=== PATIENT | male | born 1940 | race Caucasian/White ===

== ENCOUNTER 2018-04-25 13:52 | Inpatient (IN) | payer MEDICARE, OTHER ==
[~2018-04-25] VITALS: Ht 175.3 cm; Wt 86.2 kg
[2018-04-25] MEDS ORDERED: CETI10TA32 PO (14:19)
[2018-04-25] MEDS ORDERED: CHOL1CRY3 PO (14:19)
[2018-04-25] MEDS ORDERED: SIMV20TA3 PO (14:19)
[2018-04-25] MEDS ORDERED: [UNRECOGNIZED DRUG - CODE] PO (14:19)
[2018-04-25] MEDS ORDERED: VIT1CAPS16 PO (14:19)
[2018-04-25] MEDS ORDERED: ASPI-496 PO (14:19)
[2018-04-25] MEDS ORDERED: NITR9CAP3 SL (14:19)
--- NOTE | 2018-04-25 15:23 | NUR ---
REPORT TO VENOUS RN
[2018-04-25] MEDS ORDERED: NITROGLYCERIN 0.4 MG BOTTLE (25 TABS) SL PRN (15:30)
[2018-04-25] MEDS ORDERED: NITROGLYCERIN 0.4 MG/SPRAY SL PRN (15:30)
[2018-04-25] MEDS ORDERED: ONDANSETRON 2MG/ML, 2ML IVPush PRN (15:30)
[2018-04-25] MEDS ORDERED: morphine SULFATE 10 MG/ML, 1ML IVPush PRN (15:30)
[2018-04-25] MEDS ORDERED: ONDANSETRON ODT 4 MG PO PRN (15:30)
[2018-04-25] MEDS ORDERED: SODIUM CHLORIDE FLUSH 10ML SYR IVF PRN (15:30)
[2018-04-25 15:57] VITALS: BP 129/82
[2018-04-25 16:03] VITALS: BP 129/82
[2018-04-25] MEDS ORDERED: HEPARIN 5,000 UNITS/ML, 1ML IV ONE (16:30)
[2018-04-25] MEDS: HEPARIN 25,000 UNITS/500ML PMX 500 ML IV PRN (17:08)
[2018-04-25 19:47] VITALS: BP 106/66
[2018-04-25] MEDS ORDERED: SIMVASTATIN 20 MG TABLET PO SCH (21:00)
[2018-04-25] MEDS: CETIRIZINE 10 MG TABLET PO SCH (21:07)
[2018-04-25] MEDS: HEPARIN 5,000 UNITS/ML, 1ML IV PRN (23:13)
[2018-04-26 03:12] VITALS: BP 113/73
[2018-04-26] MEDS ORDERED: METOPROLOL TARTRATE 25 MG TABLET PO ONE (05:00)
[2018-04-26 05:30] LABS: BASOPHILS # (AUTO) 0.05 x10^3/uL (0-0.1); BASOPHILS % (AUTO) 1 % (0-1); EOSINOPHILS # (AUTO) 0.04 x10^3/uL (0-0.4); EOSINOPHILS % (AUTO) 1 % (1-7); LYMPHOCYTES # (AUTO) 1.58 x10^3/uL (1-3.4); LYMPHOCYTES % (AUTO) 19 % (22-44); MD NO; MEAN CORPUSCULAR HEMOGLOBIN 31.7 pg (27.5-34.5); MEAN CORPUSCULAR HGB CONC 33.3 g/dL (33.2-36.2); MEAN CORPUSCULAR VOLUME 95.2 fL (81-97); MEAN PLATELET VOLUME 10.9 fL (7.4-10.4); MONOCYTES # (AUTO) 0.77 x10^3/uL (0.2-0.8); MONOCYTES % (AUTO) 9 % (2-9); NEUTROPHILS # (AUTO) 5.97 x10^3/uL (1.8-6.8); NEUTROPHILS % (AUTO) 71 % (42-75); PLATELET COUNT 214 x10^3/uL (130-400); RED BLOOD COUNT 4.72 x10^6/uL (4.38-5.82); RED CELL DISTRIBUTION WIDTH 14.9 % (9.4-14.8)
[2018-04-26 05:44] LABS: CHLORIDE 110 mmol/L (98-107)
[2018-04-26 06:02] LABS: ALANINE AMINOTRANSFERASE 47 U/L (12-78); ALBUMIN 3.2 g/dL (3.4-5.0); ALKALINE PHOSPHATASE 82 U/L (45-117); ANION GAP 9 mmol/L (5-15); BILIRUBIN,TOTAL 0.9 mg/dL (0.2-1.0); CALCIUM 8.6 mg/dL (8.5-10.1); CHOL/HDL RATIO 2.4; CHOLESTEROL, TOTAL 97 mg/dL (140-239); CREATININE 1.08 mg/dL (0.7-1.3); HDL CHOL % 42 % (26-37); HDL CHOLESTEROL (DIRECT) 41 mg/dL (40-60); LDL CHOLESTEROL,CALCULATED 45 mg/dL (54-169); LDL/HDL RATIO 1.1 (0.5-3.0); TRIGLYCERIDES 57 mg/dL (50-200); VLDL CHOLESTEROL 11 mg/dL (0-25)
[2018-04-26] MEDS: HEPARIN 5,000 UNITS/ML, 1ML IV PRN ×2 (06:23→23:30)
[2018-04-26 07:40] VITALS: BP 124/79
[2018-04-26] MEDS: FUROSEMIDE 20 MG/2 ML IV SCH ×2 (08:14→18:31)
[2018-04-26] MEDS ORDERED: CETIRIZINE 10 MG TABLET PO SCH (09:00)
[2018-04-26] MEDS ORDERED: ASPIRIN 81 MG TABLET EC PO SCH (09:00)
[2018-04-26] MEDS ORDERED: SIMVASTATIN 20 MG TABLET PO SCH (09:00)
[2018-04-26 12:06] VITALS: BP 137/88
[2018-04-26 12:29] LABS: HEMOGLOBIN A1C 5.9 % (4.2-6.3)
[2018-04-26] MEDS ORDERED: FENTANYL PF 100 MCG/2ML ONE (14:08)
[2018-04-26] MEDS ORDERED: VERAPAMIL 2.5 MG/ML, 2ML ONE (14:08)
[2018-04-26] MEDS ORDERED: MIDAZOLAM 1 MG/ML, 2ML ONE (14:08)
[2018-04-26] MEDS ORDERED: HEPARIN 1,000 UNITS/ML, 10ML ONE (14:08)
[2018-04-26] MEDS ORDERED: LIDOCAINE-MPF 1%, 5ML ONE (14:08)
[2018-04-26] MEDS ORDERED: FUROSEMIDE 20 MG/2 ML IV SCH (17:00)
[2018-04-26] MEDS ORDERED: INSULIN LISPRO 100 UNITS/ML, PEN SQ-INSULIN SCH (18:00)
[2018-04-26] MEDS ORDERED: CHLORHEXIDINE 15 ML UDC MM PRN (18:00)
[2018-04-26] MEDS ORDERED: DO NOT GIVE MC SCH (18:00)
[2018-04-26] MEDS ORDERED: DO NOT GIVE XX SCH (18:00)
[2018-04-26 18:05] LABS: INTERNATIONAL NORMALIZED RATIO 1.1 (0.93-1.1); PROTHROMBIN TIME 11.5 Seconds (9.6-11.5)
[2018-04-26 18:06] LABS: BASOPHILS # (AUTO) 0.04 x10^3/uL (0-0.1); BASOPHILS % (AUTO) 0 % (0-1); EOSINOPHILS # (AUTO) 0.03 x10^3/uL (0-0.4); EOSINOPHILS % (AUTO) 0 % (1-7); LYMPHOCYTES % (AUTO) 16 % (22-44); MD NO; MEAN CORPUSCULAR HGB CONC 34.2 g/dL (33.2-36.2); MEAN CORPUSCULAR VOLUME 93.5 fL (81-97); MEAN PLATELET VOLUME 10.4 fL (7.4-10.4); MONOCYTES # (AUTO) 0.85 x10^3/uL (0.2-0.8); MONOCYTES % (AUTO) 9 % (2-9); NEUTROPHILS # (AUTO) 7.07 x10^3/uL (1.8-6.8); NEUTROPHILS % (AUTO) 75 % (42-75); PLATELET COUNT 218 x10^3/uL (130-400); RED BLOOD COUNT 4.95 x10^6/uL (4.38-5.82); RED CELL DISTRIBUTION WIDTH 15.1 % (9.4-14.8)
[2018-04-26 18:07] LABS: ALANINE AMINOTRANSFERASE 41 U/L (12-78); ALBUMIN 3.2 g/dL (3.4-5.0); ANION GAP 5 mmol/L (5-15); CALCIUM 8.7 mg/dL (8.5-10.1); CHLORIDE 109 mmol/L (98-107)
[2018-04-26 18:10] LABS: ALKALINE PHOSPHATASE 89 U/L (45-117); BILIRUBIN,TOTAL 0.8 mg/dL (0.2-1.0); TOTAL PROTEIN 7.3 g/dL (6.4-8.2)
[2018-04-26 18:26] LABS: HEMOGLOBIN A1C 5.8 % (4.2-6.3)
[2018-04-26] MEDS: CARVEDILOL 3.125 MG TABLET PO SCH ×2 (18:31→20:36)
[2018-04-26] MEDS: HEPARIN 25,000 UNITS/500ML PMX 500 ML IV PRN (19:13)
[2018-04-26 19:20] VITALS: BP 120/77
[2018-04-26 20:01] LABS: MICROSCOPIC NOT IND
[2018-04-26] MEDS: SODIUM CHLORIDE 0.9% 1,000 ML IV SCH ×2 (20:36→22:55)
[2018-04-26] MEDS ORDERED: ZOLPIDEM 5MG TABLET PO PRN (21:00)
[2018-04-26] MEDS ORDERED: ATORVASTATIN 80 MG TABLET PO SCH (21:00)
[2018-04-26] MEDS: SODIUM CHLORIDE FLUSH 10ML SYR IVF SCH (21:39)
[2018-04-26] MEDS: CETIRIZINE 10 MG TABLET PO SCH (21:40)
[2018-04-26] MEDS: MUPIROCIN OINT 2%, 22GM TP SCH (21:41)
[2018-04-27 03:57] VITALS: BP_SYST 114; BP_SYST 127; BP_DIAS 72; BP_DIAS 83
[2018-04-27] MEDS: SODIUM CHLORIDE 0.9% 1,000 ML IV SCH (04:03)
[2018-04-27] MEDS: MUPIROCIN OINT 2%, 22GM TP SCH (05:13)
[2018-04-27] MEDS ORDERED: METOPROLOL TARTRATE 25 MG TABLET PO ONE (05:30)
[2018-04-27] MEDS ORDERED: PAPAVERINE 30 MG/ML, 2ML ONE (06:24)
[2018-04-27] MEDS ORDERED: HEPARIN 1,000 UNITS/ML, 10ML ONE (06:24)
[2018-04-27] MEDS ORDERED: MIDAZOLAM 10MG/2 ML ONE (06:57)
[2018-04-27] MEDS ORDERED: FENTANYL PF 250 MCG/5ML ONE ×4 (06:58→06:59)
[2018-04-27] MEDS ORDERED: ALBUMIN HUMAN 5% 500 ML IV PRN (07:00)
[2018-04-27] MEDS ORDERED: CEFUROXIME 1.5 GM in SODIUM CHLORIDE 0.9% 50 ML IVPB PRN ×2 (07:00→07:30)
[2018-04-27] MEDS ORDERED: VANCOMYCIN 1,100 MG in SODIUM CHLORIDE 0.9% 250 ML IV PRN ×2 (07:00→07:30)
[2018-04-27] MEDS ORDERED: POTASSIUM CHLORIDE 80 MEQ, SODIUM BICARBONATE 8.4% 10 MEQ, MAGNESIUM SULFATE 0.5 GM, LI... IV PRN (07:00)
[2018-04-27] MEDS ORDERED: PHENYLEPHRINE 10 MG in SODIUM CHLORIDE 0.9% 249 ML IV PRN ×2 (07:00→11:23)
[2018-04-27] MEDS ORDERED: EPINEPHRINE 2 MG in SODIUM CHLORIDE 0.9% 248 ML IV SCH (07:00)
[2018-04-27] MEDS ORDERED: DEXMEDETOMIDINE 200 MCG in SODIUM CHLORIDE 0.9% 48 ML IV SCH (07:00)
[2018-04-27] MEDS ORDERED: MANNITOL PMX 20% 500 ML IVPB PRN (07:00)
[2018-04-27] MEDS ORDERED: REGULAR INSULIN 62.5 UNITS in SODIUM CHLORIDE 0.9% 249.375 ML IV PRN ×2 (07:00→11:23)
[2018-04-27] MEDS: FUROSEMIDE 20 MG/2 ML IV SCH ×2 (07:30→11:30)
[2018-04-27] MEDS ORDERED: PAPAVERINE 30 MG/ML, 2ML IVPush ONE (08:30)
[2018-04-27] MEDS ORDERED: HEPARIN 1,000 UNITS/ML, 10ML IV ONE (08:31)
[2018-04-27] MEDS: DOCUSATE 100 MG CAPSULE PO SCH ×2 (09:00→22:08)
[2018-04-27] MEDS: SODIUM CHLORIDE FLUSH 10ML SYR IVF SCH (09:00)
[2018-04-27] MEDS ORDERED: AMINOCAPROIC ACID 250 MG/ML, 20ML ONE ×2 (09:25)
[2018-04-27] MEDS ORDERED: VASOPRESSIN 20 UNIT/ML, 1ML ONE (09:25)
[2018-04-27] MEDS ORDERED: PROPOFOL 10 MG/ML, 20ML ONE (09:25)
[2018-04-27] MEDS ORDERED: ROCURONIUM 10MG/ML,5ML ONE ×2 (09:25)
[2018-04-27] MEDS ORDERED: PROTAMINE SULFATE 10 MG/ML, 25ML ONE ×2 (09:25)
[2018-04-27] MEDS ORDERED: CALCIUM CHLORIDE 10%, 10ML SYR ONE (10:26)
[2018-04-27] MEDS ORDERED: DOBUTAMINE 250 MG in SODIUM CHLORIDE 0.9% 230 ML IV PRN (11:23)
[2018-04-27] MEDS ORDERED: VASOPRESSIN 50 UNIT in SODIUM CHLORIDE 0.9% 247.5 ML IV PRN (11:23)
[2018-04-27] MEDS ORDERED: DEXMEDETOMIDINE 200 MCG in SODIUM CHLORIDE 0.9% 48 ML IV PRN (11:23)
[2018-04-27] MEDS ORDERED: NITROGLYCERIN/D5W PMX 250 ML IV PRN (11:23)
[2018-04-27] MEDS ORDERED: SODIUM CHLORIDE 0.9% 1,000 ML IV SCH (11:23)
[2018-04-27] MEDS: INSULIN LISPRO 100 UNITS/ML, PEN SQ-INSULIN SCH ×3 (11:30→20:28)
[2018-04-27] MEDS ORDERED: INSULIN REGULAR 100 UNITS/ML, 3ML VIAL IVPush PRN (11:30)
[2018-04-27] MEDS ORDERED: SODIUM BICARB 8.4%, 50ML SYRINGE IVPush PRN (11:30)
[2018-04-27] MEDS ORDERED: ACETAMINOPHEN 325 MG TABLET PO PRN (11:30)
[2018-04-27] MEDS ORDERED: BISACODYL 5 MG EC TABLET PO PRN (11:30)
[2018-04-27] MEDS ORDERED: OXYcodone IR 5MG TABLET PO PRN (11:30)
[2018-04-27] MEDS ORDERED: MIDAZOLAM 1 MG/ML, 2ML IVPush PRN (11:30)
[2018-04-27] MEDS ORDERED: BISACODYL 10 MG SUPP PR PRN (11:30)
[2018-04-27] MEDS: KSCALE TO 4.5 IV SCH ×3 (11:30→23:30)
[2018-04-27] MEDS ORDERED: ACETAMINOPHEN 650 MG SUPP PR PRN (11:30)
[2018-04-27] MEDS ORDERED: morphine SULFATE 10 MG/ML, 1ML IVPush PRN (11:30)
[2018-04-27] MEDS ORDERED: HYDROcodone/APAP 5/325 TABLET PO PRN (11:30)
[2018-04-27] MEDS: MUPIROCIN OINT 2%, 22GM NAS SCH ×2 (11:30→22:08)
[2018-04-27] MEDS ORDERED: ONDANSETRON 2MG/ML, 2ML IVPB PRN (11:30)
[2018-04-27] MEDS ORDERED: PROCHLORPERAZINE 5 MG/ML, 2ML IVPush PRN (11:30)
[2018-04-27] MEDS ORDERED: SODIUM BICARBONATE 1 MEQ/ML, 50ML VIAL ONE (11:58)
[2018-04-27] MEDS ORDERED: LIDOCAINE 2% 100MG/5ML SYRINGE ONE (11:59)
[2018-04-27] MEDS ORDERED: methylPREDNISolone SOD SUCC 125 MG/2 ML ONE (11:59)
[2018-04-27] MEDS ORDERED: ALBUMIN HUMAN 25% 50 ML ONE (11:59)
[2018-04-27] MEDS ORDERED: HEPARIN 1,000 UNITS/ML, 30ML ONE (11:59)
[2018-04-27 12:18] LABS: GLUCOSE BY BLOOD GAS ANALYZER 129 mg/dL (70-110); HEMOGLOBIN BY BLOOD GAS ANALYZ 13.8 g/dL (14.0-18.0)
[2018-04-27 12:20] LABS: FIO2 50 %
[2018-04-27 12:32] LABS: INTERNATIONAL NORMALIZED RATIO 1.22 (0.93-1.1); PROTHROMBIN TIME 12.7 Seconds (9.6-11.5)
[2018-04-27] MEDS: MAGNESIUM SULFATE 1 GM in SODIUM CHLORIDE 0.9% 50 ML IVPB SCH (12:38)
[2018-04-27] MEDS: LACTATED RINGERS 500 ML IV PRN ×2 (13:28→15:07)
[2018-04-27] MEDS ORDERED: MORPHINE SULFATE 4 MG/ML, 1ML ONE (14:15)
[2018-04-27] MEDS: EPINEPHRINE 2 MG in SODIUM CHLORIDE 0.9% 248 ML IV PRN (16:45)
[2018-04-27] MEDS: CEFUROXIME 1.5 GM in SODIUM CHLORIDE 0.9% 50 ML IVPB SCH (19:33)
[2018-04-27] MEDS ORDERED: ALBUMIN HUMAN 5% 500 ML IV ONE (20:00)
[2018-04-27] MEDS: VANCOMYCIN 1,100 MG in SODIUM CHLORIDE 0.9% 250 ML IVPB SCH (20:19)
[2018-04-27] MEDS: AMIODARONE 900 MG in DEXTROSE 5% 482 ML IV PRN (20:24)
[2018-04-27] MEDS ORDERED: FILTER 0.22 MICRON FOR AMIODARONE IV PRN (20:30)
[2018-04-28] MEDS: EPINEPHRINE 2 MG in SODIUM CHLORIDE 0.9% 248 ML IV PRN (00:07)
[2018-04-28 04:00] VITALS: BP 116/52
[2018-04-28 05:02] LABS: BASOPHILS # (AUTO) 0.02 x10^3/uL (0-0.1); BASOPHILS % (AUTO) 0 % (0-1); EOSINOPHILS # (AUTO) 0.23 x10^3/uL (0-0.4); EOSINOPHILS % (AUTO) 2 % (1-7); LYMPHOCYTES # (AUTO) 0.96 x10^3/uL (1-3.4); LYMPHOCYTES % (AUTO) 7 % (22-44); MD NO; MEAN CORPUSCULAR HEMOGLOBIN 32.4 pg (27.5-34.5); MEAN CORPUSCULAR HGB CONC 34.1 g/dL (33.2-36.2); MEAN CORPUSCULAR VOLUME 94.8 fL (81-97); MEAN PLATELET VOLUME 10.3 fL (7.4-10.4); MONOCYTES # (AUTO) 1.19 x10^3/uL (0.2-0.8); MONOCYTES % (AUTO) 9 % (2-9); NEUTROPHILS % (AUTO) 82 % (42-75); PLATELET COUNT 148 x10^3/uL (130-400); RED BLOOD COUNT 3.86 x10^6/uL (4.38-5.82); RED CELL DISTRIBUTION WIDTH 14.7 % (9.4-14.8)
[2018-04-28 05:08] LABS: INTERNATIONAL NORMALIZED RATIO 1.2 (0.93-1.1); PROTHROMBIN TIME 12.5 Seconds (9.6-11.5)
[2018-04-28 05:09] LABS: ALBUMIN 2.9 g/dL (3.4-5.0); ANION GAP 7 mmol/L (5-15); CHLORIDE 112 mmol/L (98-107)
[2018-04-28 05:10] LABS: CREATININE 0.93 mg/dL (0.7-1.3)
[2018-04-28] MEDS: KSCALE TO 4.5 IV SCH (05:30)
[2018-04-28] MEDS ORDERED: EPINEPHRINE 4 MG in SODIUM CHLORIDE 0.9% 246 ML IV PRN (06:00)
[2018-04-28] MEDS: INSULIN LISPRO 100 UNITS/ML, PEN SQ-INSULIN SCH ×4 (07:00→20:20)
[2018-04-28] MEDS: CEFUROXIME 1.5 GM in SODIUM CHLORIDE 0.9% 50 ML IVPB SCH (07:55)
[2018-04-28] MEDS: VANCOMYCIN 1,100 MG in SODIUM CHLORIDE 0.9% 250 ML IVPB SCH (08:43)
[2018-04-28] MEDS: FUROSEMIDE 20 MG/2 ML IV SCH (08:56)
[2018-04-28] MEDS: DOCUSATE 100 MG CAPSULE PO SCH ×2 (08:56→20:19)
[2018-04-28] MEDS: ASPIRIN 81 MG TABLET CHEW PO SCH (08:56)
[2018-04-28] MEDS: MUPIROCIN OINT 2%, 22GM NAS SCH ×2 (08:57→20:19)
[2018-04-28] MEDS: METOPROLOL TARTRATE 25 MG TABLET PO/NG SCH ×2 (10:22→20:22)
[2018-04-28] MEDS: MAGNESIUM SULFATE 1 GM in SODIUM CHLORIDE 0.9% 50 ML IVPB SCH (12:02)
[2018-04-28] MEDS: CHLORHEXIDINE 15 ML UDC MM SCH (20:19)
[2018-04-28] MEDS: CETIRIZINE 10 MG TABLET PO SCH (20:19)
[2018-04-29] MEDS: AMIODARONE 900 MG in DEXTROSE 5% 482 ML IV PRN (01:04)
[2018-04-29 03:49] VITALS: BP 105/64
[2018-04-29 04:10] LABS: EOSINOPHILS % (AUTO) 0 % (1-7); MD NO; MEAN CORPUSCULAR HEMOGLOBIN 31.3 pg (27.5-34.5); NEUTROPHILS % (AUTO) 80 % (42-75); RED BLOOD COUNT 4.12 x10^6/uL (4.38-5.82)
[2018-04-29 04:15] LABS: BASOPHILS # (AUTO) 0.01 x10^3/uL (0-0.1); BASOPHILS % (AUTO) 0 % (0-1); LYMPHOCYTES % (AUTO) 9 % (22-44); MEAN CORPUSCULAR HGB CONC 33.1 g/dL (33.2-36.2); MEAN CORPUSCULAR VOLUME 94.4 fL (81-97); MEAN PLATELET VOLUME 11.2 fL (7.4-10.4); MONOCYTES # (AUTO) 1.33 x10^3/uL (0.2-0.8); MONOCYTES % (AUTO) 11 % (2-9); NEUTROPHILS # (AUTO) 9.67 x10^3/uL (1.8-6.8); PLATELET COUNT 139 x10^3/uL (130-400); RED CELL DISTRIBUTION WIDTH 14.8 % (9.4-14.8)
[2018-04-29 04:21] LABS: ANION GAP 5 mmol/L (5-15); CALCIUM 8.2 mg/dL (8.5-10.1); CHLORIDE 110 mmol/L (98-107); CREATININE 1.05 mg/dL (0.7-1.3)
[2018-04-29 04:57] LABS: INTERNATIONAL NORMALIZED RATIO 1.22 (0.93-1.1); PROTHROMBIN TIME 12.7 Seconds (9.6-11.5)
[2018-04-29] MEDS: INSULIN LISPRO 100 UNITS/ML, PEN SQ-INSULIN SCH ×4 (07:36→20:40)
[2018-04-29] MEDS: FUROSEMIDE 20 MG/2 ML IV SCH (07:37)
[2018-04-29] MEDS: DOCUSATE 100 MG CAPSULE PO SCH ×2 (07:37→20:31)
[2018-04-29] MEDS: MUPIROCIN OINT 2%, 22GM NAS SCH ×2 (07:37→20:31)
[2018-04-29] MEDS: ASPIRIN 81 MG TABLET CHEW PO SCH (07:37)
[2018-04-29] MEDS: METOPROLOL TARTRATE 25 MG TABLET PO/NG SCH ×2 (07:40→20:33)
[2018-04-29] MEDS: CHLORHEXIDINE 15 ML UDC MM SCH (07:46)
[2018-04-29] MEDS: ENOXAPARIN 40 MG/0.4 ML SQ SCH (07:48)
[2018-04-29] MEDS ORDERED: METOPROLOL TARTRATE 25 MG TABLET PO SCH (09:00)
[2018-04-29] MEDS: MAGNESIUM SULFATE 1 GM in SODIUM CHLORIDE 0.9% 50 ML IVPB SCH (12:36)
[2018-04-29] MEDS: AMIODARONE 200 MG TABLET PO SCH ×2 (20:31→21:00)
[2018-04-29] MEDS: ATORVASTATIN 40 MG TABLET PO SCH (20:31)
[2018-04-29] MEDS: CETIRIZINE 10 MG TABLET PO SCH (20:31)
[2018-04-30 04:52] LABS: BASOPHILS # (AUTO) 0.03 x10^3/uL (0-0.1); BASOPHILS % (AUTO) 0 % (0-1); EOSINOPHILS # (AUTO) 0.01 x10^3/uL (0-0.4); EOSINOPHILS % (AUTO) 0 % (1-7); LYMPHOCYTES # (AUTO) 1.06 x10^3/uL (1-3.4); LYMPHOCYTES % (AUTO) 8 % (22-44); MD NO; MEAN CORPUSCULAR HEMOGLOBIN 32.3 pg (27.5-34.5); MEAN CORPUSCULAR HGB CONC 34.1 g/dL (33.2-36.2); MEAN CORPUSCULAR VOLUME 94.9 fL (81-97); MEAN PLATELET VOLUME 10.5 fL (7.4-10.4); MONOCYTES # (AUTO) 1.38 x10^3/uL (0.2-0.8); MONOCYTES % (AUTO) 10 % (2-9); NEUTROPHILS % (AUTO) 82 % (42-75); PLATELET COUNT 142 x10^3/uL (130-400); RED BLOOD COUNT 4.12 x10^6/uL (4.38-5.82); RED CELL DISTRIBUTION WIDTH 14.7 % (9.4-14.8)
[2018-04-30 05:11] LABS: ANION GAP 6 mmol/L (5-15); CALCIUM 7.7 mg/dL (8.5-10.1); CHLORIDE 109 mmol/L (98-107)
[2018-04-30 05:59] VITALS: BP 119/77
[2018-04-30] MEDS: INSULIN LISPRO 100 UNITS/ML, PEN SQ-INSULIN SCH ×4 (07:00→21:00)
[2018-04-30 08:00] VITALS: BP 113/76
[2018-04-30] MEDS: FUROSEMIDE 20 MG/2 ML IV SCH (09:26)
[2018-04-30] MEDS: DOCUSATE 100 MG CAPSULE PO SCH ×2 (09:26→21:33)
[2018-04-30] MEDS: ASPIRIN 81 MG TABLET CHEW PO SCH (09:26)
[2018-04-30] MEDS: AMIODARONE 200 MG TABLET PO SCH ×2 (09:27→21:32)
[2018-04-30] MEDS: METOPROLOL TARTRATE 25 MG TABLET PO/NG SCH ×2 (09:27→21:33)
[2018-04-30] MEDS: MUPIROCIN OINT 2%, 22GM NAS SCH ×2 (09:27→21:31)
[2018-04-30 13:05] VITALS: BP 99/67
[2018-04-30] MEDS: ENOXAPARIN 40 MG/0.4 ML SQ SCH (16:12)
[2018-04-30 19:01] VITALS: BP 110/56
[2018-04-30] MEDS: ATORVASTATIN 40 MG TABLET PO SCH (21:00)
[2018-04-30] MEDS: CETIRIZINE 10 MG TABLET PO SCH (21:31)
[2018-05-01 00:39] VITALS: BP 110/62
[2018-05-01 04:23] VITALS: BP 111/73
[2018-05-01] MEDS ORDERED: METOPROLOL TARTRATE 25 MG TABLET PO ONE (04:30)
[2018-05-01 05:43] LABS: BASOPHILS # (AUTO) 0.01 x10^3/uL (0-0.1); BASOPHILS % (AUTO) 0 % (0-1); EOSINOPHILS # (AUTO) 0.03 x10^3/uL (0-0.4); EOSINOPHILS % (AUTO) 0 % (1-7); LYMPHOCYTES # (AUTO) 0.91 x10^3/uL (1-3.4); LYMPHOCYTES % (AUTO) 7 % (22-44); MD NO; MEAN CORPUSCULAR HEMOGLOBIN 32.2 pg (27.5-34.5); MEAN CORPUSCULAR HGB CONC 33.8 g/dL (33.2-36.2); MEAN CORPUSCULAR VOLUME 95.3 fL (81-97); MEAN PLATELET VOLUME 10.3 fL (7.4-10.4); MONOCYTES # (AUTO) 1.33 x10^3/uL (0.2-0.8); MONOCYTES % (AUTO) 11 % (2-9); NEUTROPHILS # (AUTO) 10.26 x10^3/uL (1.8-6.8); NEUTROPHILS % (AUTO) 82 % (42-75); PLATELET COUNT 178 x10^3/uL (130-400); RED BLOOD COUNT 4.13 x10^6/uL (4.38-5.82); RED CELL DISTRIBUTION WIDTH 14.6 % (9.4-14.8)
[2018-05-01 05:47] LABS: ANION GAP 5 mmol/L (5-15); CALCIUM 7.6 mg/dL (8.5-10.1); CHLORIDE 108 mmol/L (98-107)
[2018-05-01 05:48] LABS: CREATININE 0.88 mg/dL (0.7-1.3)
[2018-05-01] MEDS: INSULIN LISPRO 100 UNITS/ML, PEN SQ-INSULIN SCH ×4 (07:00→21:00)
[2018-05-01] MEDS: METOPROLOL TARTRATE 25 MG TABLET PO/NG SCH ×2 (07:30→21:41)
[2018-05-01 08:00] VITALS: BP 104/61
[2018-05-01] MEDS ORDERED: AMIODARONE 150 MG in DEXTROSE 5% 100 ML IV ONE (08:00)
[2018-05-01] MEDS ORDERED: FILTER 0.22 MICRON IV PRN (08:00)
[2018-05-01] MEDS: MUPIROCIN OINT 2%, 22GM NAS SCH ×2 (08:33→21:36)
[2018-05-01] MEDS: FUROSEMIDE 20 MG/2 ML IV SCH (08:33)
[2018-05-01] MEDS: AMIODARONE 200 MG TABLET PO SCH ×2 (08:33→21:37)
[2018-05-01] MEDS: DOCUSATE 100 MG CAPSULE PO SCH ×2 (08:33→21:37)
[2018-05-01] MEDS: ASPIRIN 81 MG TABLET CHEW PO SCH (08:33)
[2018-05-01 14:30] VITALS: BP 107/68
[2018-05-01] MEDS: ENOXAPARIN 40 MG/0.4 ML SQ SCH (16:41)
[2018-05-01 18:45] VITALS: BP 91/62
[2018-05-01] MEDS: ATORVASTATIN 40 MG TABLET PO SCH (21:37)
[2018-05-01] MEDS: CETIRIZINE 10 MG TABLET PO SCH (21:37)
[2018-05-02 01:45] VITALS: BP 100/61
[2018-05-02 05:40] LABS: BASOPHILS # (AUTO) 0.03 x10^3/uL (0-0.1); BASOPHILS % (AUTO) 0 % (0-1); EOSINOPHILS # (AUTO) 0.09 x10^3/uL (0-0.4); EOSINOPHILS % (AUTO) 1 % (1-7); LYMPHOCYTES # (AUTO) 0.95 x10^3/uL (1-3.4); LYMPHOCYTES % (AUTO) 9 % (22-44); MD NO; MEAN CORPUSCULAR HEMOGLOBIN 32.2 pg (27.5-34.5); MEAN CORPUSCULAR HGB CONC 33.7 g/dL (33.2-36.2); MEAN CORPUSCULAR VOLUME 95.7 fL (81-97); MONOCYTES # (AUTO) 1.17 x10^3/uL (0.2-0.8); MONOCYTES % (AUTO) 11 % (2-9); NEUTROPHILS # (AUTO) 8.55 x10^3/uL (1.8-6.8); NEUTROPHILS % (AUTO) 79 % (42-75); PLATELET COUNT 199 x10^3/uL (130-400); RED BLOOD COUNT 4.09 x10^6/uL (4.38-5.82)
[2018-05-02 05:54] LABS: ALBUMIN 2.4 g/dL (3.4-5.0); ANION GAP 5 mmol/L (5-15); CALCIUM 7.8 mg/dL (8.5-10.1); CHLORIDE 108 mmol/L (98-107)
[2018-05-02 05:57] LABS: CREATININE 0.86 mg/dL (0.7-1.3)
[2018-05-02 06:24] VITALS: BP 113/70
[2018-05-02] MEDS ORDERED: POTASSIUM CHLORIDE 20 MEQ TAB.ER.PRT PO ONE (07:00)
[2018-05-02] MEDS: INSULIN LISPRO 100 UNITS/ML, PEN SQ-INSULIN SCH (07:31)
[2018-05-02] MEDS ORDERED: FUROSEMIDE 40 MG TABLET PO SCH (09:00)
[2018-05-02] MEDS: DOCUSATE 100 MG CAPSULE PO SCH ×2 (09:09→21:50)
[2018-05-02] MEDS: AMIODARONE 200 MG TABLET PO SCH ×2 (09:09→21:50)
[2018-05-02] MEDS: ASPIRIN 81 MG TABLET CHEW PO SCH (09:10)
[2018-05-02] MEDS: METOPROLOL TARTRATE 25 MG TABLET PO/NG SCH ×2 (09:12→21:50)
[2018-05-02] MEDS: MUPIROCIN OINT 2%, 22GM NAS SCH ×2 (09:14→23:29)
[2018-05-02 12:00] VITALS: BP 89/57
[2018-05-02] MEDS: ENOXAPARIN 40 MG/0.4 ML SQ SCH (17:10)
[2018-05-02 20:25] VITALS: BP 96/64
[2018-05-02] MEDS: CETIRIZINE 10 MG TABLET PO SCH (21:50)
[2018-05-02] MEDS: ATORVASTATIN 40 MG TABLET PO SCH (21:50)
[2018-05-02 21:51] VITALS: BP 98/54
[2018-05-03 01:55] VITALS: BP 101/67
[2018-05-03 05:50] LABS: ALBUMIN 2.3 g/dL (3.4-5.0); ANION GAP 5 mmol/L (5-15); CALCIUM 8.1 mg/dL (8.5-10.1); CHLORIDE 110 mmol/L (98-107); CREATININE 0.92 mg/dL (0.7-1.3)
[2018-05-03 06:30] VITALS: BP 104/71
[2018-05-03] MEDS ORDERED: METOPROLOL SUCCINATE 25 MG TAB.ER.24H PO SCH (08:30)
[2018-05-03] MEDS ORDERED: FUROSEMIDE 40 MG TABLET PO SCH (09:00)
[2018-05-03] MEDS ORDERED: LISINOPRIL 5 MG TABLET PO SCH (09:00)
[2018-05-03] MEDS: DOCUSATE 100 MG CAPSULE PO SCH (09:30)
[2018-05-03] MEDS: AMIODARONE 200 MG TABLET PO SCH (09:30)
[2018-05-03] MEDS: MUPIROCIN OINT 2%, 22GM NAS SCH (09:30)
[2018-05-03] MEDS: ASPIRIN 81 MG TABLET CHEW PO SCH (09:31)
[2018-05-03 12:01] VITALS: BP 88/56
[2018-05-03] MEDS ORDERED: CLOP75TA PO (13:13)
[2018-05-03] MEDS ORDERED: ATOR40TA78 PO (13:13)
[2018-05-03] MEDS ORDERED: METO25TA91 PO (13:13)
[2018-05-03] MEDS ORDERED: LISI5TAB7 PO (13:13)
[2018-05-03] MEDS ORDERED: AMIO200T42 PO (13:13)
[2018-05-03] MEDS ORDERED: FURO40TA6 PO (13:13)
[2018-05-03] MEDS ORDERED: CLOPIDOGREL 75 MG TABLET PO SCH (13:30)
[2018-05-03 14:16] VITALS: BP 96/64
== END 2018-05-03 16:20 | disposition home health service (06) | DRG 233 ==
LOC: ED 14:46 → EDIP 15:02 → 5SO 15:43 → CSU 04-27 07:43 → ICU 04-29 11:24 → 5SO 04-30 06:01 → DCLOUNGE 05-03 16:12
PROVIDERS: ADMIT Hospitalist; ATTEND Hospitalist
PROC: 4A023N7 Measurement of Cardiac Sampling and Pressure, Left Heart, Percutaneous Approach (ICD-10-PCS; 2018-04-26)
PROC: B2111ZZ Fluoroscopy of Multiple Coronary Arteries using Low Osmolar Contrast (ICD-10-PCS; 2018-04-26)
PROC: B2151ZZ Fluoroscopy of Left Heart using Low Osmolar Contrast (ICD-10-PCS; 2018-04-26)
PROC: 021109W Bypass Coronary Artery, Two Arteries from Aorta with Autologous Venous Tissue, Open Approach (ICD-10-PCS; 2018-04-27)
PROC: 06BQ4ZZ Excision of Left Saphenous Vein, Percutaneous Endoscopic Approach (ICD-10-PCS; 2018-04-27)
PROC: 03HY32Z Insertion of Monitoring Device into Upper Artery, Percutaneous Approach (ICD-10-PCS; 2018-04-27)
PROC: 5A1221Z Performance of Cardiac Output, Continuous (ICD-10-PCS; 2018-04-27)
PROC: 0210099 Bypass Coronary Artery, One Artery from Left Internal Mammary with Autologous Venous Tissue, Open Approach (ICD-10-PCS; principal; 2018-04-27 07:00)
DX: I21.4 Non-ST elevation (NSTEMI) myocardial infarction (principal); I50.43 Acute on chronic combined systolic (congestive) and diastolic (congestive) heart failure; J96.00 Acute respiratory failure, unspecified whether with hypoxia or hypercapnia; I42.9 Cardiomyopathy, unspecified; I47.1 Supraventricular tachycardia; Z99.11 Dependence on respirator [ventilator] status; E78.5 Hyperlipidemia, unspecified; H26.9 Unspecified cataract; H35.30 Unspecified macular degeneration; I25.110 Atherosclerotic heart disease of native coronary artery with unstable angina pectoris; R73.9 Hyperglycemia, unspecified; I08.3 Combined rheumatic disorders of mitral, aortic and tricuspid valves; I11.0 Hypertensive heart disease with heart failure; I48.0 Paroxysmal atrial fibrillation; J30.2 Other seasonal allergic rhinitis; Z82.49 Family history of ischemic heart disease and other diseases of the circulatory system; Z91.048 Other nonmedicinal substance allergy status; Z85.828 Personal history of other malignant neoplasm of skin; Z87.891 Personal history of nicotine dependence; Z82.3 Family history of stroke; Z79.82 Long term (current) use of aspirin; Z98.42 Cataract extraction status, left eye; Z98.41 Cataract extraction status, right eye
CPT/HCPCS: 36415; 71045; 71046; 80048; 80053; 80061; 81003; 82040; 82330; 82800; 82803; 82810; 82947; 82962; 83036; 83735; 84100; 84132; 84295; 84443; 84484; 85014; 85018; 85025; 85049; 85347; 85379; 85520; 85610; 85730; 86850; 86900; 86923; 87081; 93005; 93306; 93312; 93321; 93325; 93458; 93880; 93970; 94002; 94150; 99156; 99285; C1769; C1894; G0378; J0171; J0697; J1644; J1650; J1815; J2250; J2704; J2720; J3010; J3370; J3475; J3480; J3490; J7120; P9045; P9047; C1751; C1760; J0282; J1940; J2270; J2370; J2440; J2930; J7050; J7060; Q9967